=== PATIENT | female | born 1990 | race Caucasian/White ===

== ENCOUNTER 2016-11-15 16:03 | Emergency (ER) | payer SELFPAY ==
[2016-11-15] MEDS ORDERED: ONDANSETRON HCL 4 MG TAB.RAPDIS PO ONE (16:56)
--- NOTE | 2016-11-15 16:58 | ED Physician Documentation ---
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 No hematemesis. No fever. No diarreha. No abdominal pain. No recent travel.) - Associated Symptoms Abdominal Pain: none - ROS CONST: none - PAST HX Past History: none Allergies/Adverse Reactions: Allergies Allergy/AdvReac Type Severity Reaction Status Date / Time latex Allergy Mild Itchy Skin Verified 11/15/16 16:52 Home Medications: Ambulatory Orders Medication Instructions Recorded Norgestimate-Ethinyl Estradiol 1 each PO 11/15/16 [Sprintec 28 Day Tablet] Ondansetron HCl Rapdis [Zofran Odt] 4 mg PO Q8 PRN #15 tab 11/15/16 - SOCIAL HX Smoking History: non-smoker - FAMILY HX Family History: none - VITAL SIGNS Vital Signs: Vital Signs Temp Pulse Resp BP Pulse Ox 98.1 F 111 H 16 129/85 97 11/15/16 16:28 11/15/16 16:28 11/15/16 16:28 11/15/16 16:28 11/15/16 16:28 - REVIEWED ASSESSMENTS Nursing Assessment Reviewed: Yes Vitals Reviewed: Yes ED Results Lab/Radiology - Orders Orders: ED Orders Category Date Time Status Ondansetron HCl Rapdis [Zofran Odt] Med 11/15/16 16:56 Discontinued 4 mg PO NOW ONE Nausea Physical Exam - EXAM General Appearance: no acute distress, alert EENT: eye inspection normal, ENT inspection normal, VERNON Neck: normal inspection Respiratory: no resp distress CVS: reg rate & rhythm, heart sounds normal Abdomen: non-tender, no organomegaly Back: non-tender Extremities: non-tender Neuro/Psych: oriented X3 Discharge Clincal Impression: Nausea & vomiting Qualifiers: Vomiting type: unspecified Vomiting Intractability: non-intractable Qualified Code(s): R11.2 - Nausea with vomiting, unspecified Prescriptions: Ondansetron HCl Rapdis [Zofran Odt] 4 mg PO Q8 PRN #15 tab PRN Reason: Nausea / Vomiting Referrals: Primary Doctor,No [Primary Care Provider] - 2 Days Additional Instructions: Take Zofran 4mg SL as needed for nausea Clear liquid diet Home Medications: Ambulatory Orders Norgestimate-Ethinyl Estradiol [Sprintec 28 Day Tablet] 1 each PO 11/15/16 Ondansetron HCl Rapdis [Zofran Odt] 4 mg PO Q8 PRN #15 tab 11/15/16 Condition: Good Disposition: 01 HOME, SELF-CARE Decision to Admit: NO Decision Time: 16:58
[2016-11-15 17:15] VITALS: BP 135/68
== END 2016-11-15 17:10 | disposition home or self-care (01) ==
LOC: ED 16:03
DX: R11.2 Nausea with vomiting, unspecified (principal)
CPT/HCPCS: 99283; A9270

== ENCOUNTER 2018-12-13 15:35 | Emergency (ER) | payer SELFPAY ==
--- NOTE | 2018-12-13 16:07 | ED Physician Documentation ---
Ankle Injury - HPI Stated Complaint: Left ankle pain Chief Complaint: Lower Extremity Injury Additional Information: Patient presents to ED after falling at the mailbox just prior to arrival. Patient complains of left ankle pain. She reports prior surgery to left ankle. Onset: minutes (45) Where: home Severity: moderate r: fall (at the mailbox) Associated Symptoms:: swelling, unable to bear weight Further Comments: no - ROS CONST: denies: fever CVS/RESP: denies: shortness of breath NEURO: denies: headache GI/: denies: nausea, vomiting MS/SKIN/LYMPH: none, ankle swelling - PAST HX Past History: none Allergies/Adverse Reactions: Allergies Allergy/AdvReac Type Severity Reaction Status Date / Time latex Allergy Mild Itchy Skin Verified 12/13/18 16:30 hydrocodone [From Vicodin] Allergy Rash Verified 12/13/18 16:32 Home Medications: Ambulatory Orders Medication Instructions Recorded Norgestimate-Ethinyl Estradiol 1 each PO 11/15/16 [Sprintec 28 Day Tablet] Ondansetron HCl Rapdis [Zofran Odt] 4 mg PO Q8 PRN #15 tab 11/15/16 - SOCIAL HX Smoking History: non-smoker Alcohol Use: none Drug Use: none - FAMILY HX Family History: none - VITAL SIGNS Vital Signs: Vital Signs Temp Pulse Resp BP Pulse Ox 98.4 F 103 H 20 256/92 99 12/13/18 15:35 12/13/18 15:35 12/13/18 15:35 12/13/18 15:35 12/13/18 15:35 - REVIEWED ASSESSMENTS Nursing Assessment Reviewed: Yes Vitals Reviewed: Yes ED Results Lab/Radiology - Radiology Radiology Impressions: Report Submission Date: Dec 13, 2018 5:23:25 PM CITY DISPATCH SUPERVISOR Patient Study Name: JEAN-PAUL PYLE Date: Dec 13, 2018 4:43:16 PM CITY DISPATCH SUPERVISOR Modality Type: DX Gender: F Description: ANKLE 3 VIEWS OR MORE : 89 Institution: [facility] Physician: LESLY MASON Left ankle, 3 views HISTORY Injury FINDINGS No prior examination is available for comparison. Wires, plate and screws stabilize the distal tibia and medial malleolus. Hardware appears in good position. No fracture is identified. There is no dislocation or abnormal bone destruction. Ankle mortise is normal. IMPRESSION Postoperative changes, distal tibia. No acute abnormality. Electronically signed on Dec 13, 2018 5:23:25 PM CITY DISPATCH SUPERVISOR by: Mickey Lee - Orders Orders: ED Orders Category Date Time Status LEFT ANKLE [ANKLE 3 VIEWS OR MORE] [RAD] Stat Exams 12/13/18 Ordered Ankle Injury Physical Exam - Physical Exam General Appearance: no acute distress, alert Foot: bilateral foot: non-tender, normal inspection Ankle: left: bone tenderness, deformity, ecchymosis, soft tissue tenderness, swelling Gait: unable to bear weight Neuro: sensation nml Vascular: no vascular compromise Tendons: tendon function nml Leg/Knee/Thigh: uninjured above ankle Skin: intact, warm Head/ENT: nml inspection Neck/Back: nml inspection Resp/CVS: chest non-tender, breath sounds nml Abdomen: non-tender Discharge Clincal Impression: Injury of ankle Referrals: Primary Doctor,No [Primary Care Provider] - 2 Days Additional Instructions: 1. Ibuprofen as needed for swelling 2. Apply ice to affected area as needed for comfort 3. Keep ankle elevated as much as possible 4. Remove ELISHA bandage when sleeping. 5. Use walking boot from previous injury as needed 6. Follow up with PCP within 1 week 7. Return to ER for new or worsening symptoms Condition: Stable Disposition: 01 HOME, SELF-CARE Decision to Admit: NO Date of Decison to Admit: 12/13/18 Decision Time: 17:35
[2018-12-13] MEDS ORDERED: HYDROcodone /APAP 5/325 1 EACH TABLET PO ONE (16:32)
[2018-12-13] MEDS ORDERED: ACETAMINOPHEN WITH CODEINE 300MG/30MG TABLET PO ONE (16:47)
[2018-12-13 18:16] VITALS: BP 131/88
--- NOTE | 2018-12-14 06:28 | Diagnostic Imaging Report ---
LESLY MASON [facility] [id number] [facility] [address] [place], [place]. [address] Report Submission Date: Dec 13, 2018 5:23:25 PM BIOMEDICAL SCIENTIST Patient Study Name: JEAN-PAUL PYLE Date: Dec 13, 2018 4:43:16 PM BIOMEDICAL SCIENTIST Modality Type: DX Gender: F Description: ANKLE 3 VIEWS OR MORE : 89 Institution: [facility] Physician: LESLY MASON Left ankle, 3 views HISTORY Injury FINDINGS No prior examination is available for comparison. Wires, plate and screws stabilize the distal tibia and medial malleolus. Hardware appears in good position. No fracture is identified. There is no dislocation or abnormal bone destruction. Ankle mortise is normal. IMPRESSION Postoperative changes, distal tibia. No acute abnormality. Electronically signed on Dec 13, 2018 5:23:25 PM BIOMEDICAL SCIENTIST by: Mickey PRATT
== END 2018-12-13 18:00 | disposition home or self-care (01) ==
LOC: ED 15:35
DX: S99.912A Unspecified injury of left ankle, initial encounter (principal); W19.XXXA Unspecified fall, initial encounter; Y93.89 Activity, other specified; Y92.008 Other place in unspecified non-institutional (private) residence as the place of occurrence of the external cause
CPT/HCPCS: 73610; 99282; 99283